=== PATIENT | male | born 1965 | race Caucasian/White ===

== ENCOUNTER 2018-08-14 23:19 | Inpatient (IN) | payer OTHER ==
[~2018-08-14] VITALS: Ht 175.3 cm; Wt 68.0 kg
--- NOTE | 2018-08-14 23:45 | NUR ---
SE RECIBE PTE ALERTA Y ORIENTADO POR FRANK EN AMBULANCIA TRNSFERIDO DESDE [facility] POR DOLOR ABDOMINAL. PTE REFIERE NO PODER EVACUAR DESDE HACE 4 MATA Y PRESENTAR DOLOR ABDOMINAL Y EN COSTADO DARWIN. PTE PRESENTADO A DR. PANIAGUA POR PERSONAL PARAMEDICO.
--- NOTE | 2018-08-15 00:52 | NUR ---
SE SAROJ MUESTRAS Y SE ADMINISTRAN MEDICAMENTOS. PACIENTE AL MOMENTO PENDIENTE A RESULTADOS DE RADIOLOGIA. SE CONTINUA MONITOREANDO POR CAMBIOS. SE ORIENTA PACIENTE SOBRE NGT ARTIS EL MISMO REHUSA TRATAMIENTO.
--- NOTE | 2018-08-15 05:40 | NUR ---
0200AM SE COLOCA TUBO NASOGASTRICO EN FOSA NASAL DERECHA, SE VERIFICA POSICION CON MR. KINA Y SE COLOCA A SUCCION INTERMITENTE. PT TOLERA INTERVENCION DEL XAVIER.
--- NOTE | 2018-08-15 06:00 | NUR ---
SE REALIZA LAVADO ESTOMCAL CON 100ML DE NORMAL SALINE, EL MISMO INDICA QUE NO TIENE SANGRADO ACTIVO. SE NOTIFICA A LA DRA. OSEGUERA.
--- NOTE | 2018-08-15 06:30 | NUR ---
SE ADMINISTRA NORMAL SALINE FULL DRIP BECKIE ORDEN MEDICA Y SE BINA BP Y SE DOCUMENTA EN SISTEMA.
== END 2018-08-17 18:30 | disposition home or self-care (01) | DRG 389 ==
LOC: ER 23:19 → SEC-K 08-15 19:46 → SURG 08-15 19:46
PROVIDERS: ADMIT Colon & Rectal Surgery
DX: K56.690 Other partial intestinal obstruction (principal); K57.32 Diverticulitis of large intestine without perforation or abscess without bleeding; K59.09 Other constipation